=== PATIENT | female | born 1970 | race Caucasian/White ===

== ENCOUNTER 2018-02-20 07:49 | Inpatient (IN) | payer OTHER ==
[~2018-02-20 07:49] MED LIST: SOD CHLORIDE 0.9% 1,000 ML IV
[2018-02-20] MEDS ORDERED: LIDOCAINE 1% (MPF) 30 ML INJ (09:07)
[2018-02-20] MEDS ORDERED: BUPIVACAINE 0.25%/EPI (SDV) 30 ML INJ (09:07)
[2018-02-20] MEDS ORDERED: CEFAZOLIN 1 GM INJ ×2 (09:10→09:45)
[2018-02-20] MEDS ORDERED: PROPOFOL 20 ML (09:10)
[2018-02-20] MEDS ORDERED: ROCURONIUM 50 MG INJ (09:10)
[2018-02-20] MEDS ORDERED: LIDOCAINE 2% (SDV) 5 ML INJ (09:10)
[2018-02-20] MEDS ORDERED: MIDAZOLAM 1 MG/ML 2 ML INJ (09:10)
[2018-02-20] MEDS ORDERED: FENTAnyl 50 MCG/ML VIAL (09:10)
[2018-02-20] MEDS ORDERED: ROPIVACAINE 0.5 % 30 ML VIAL (09:10)
[2018-02-20] MEDS ORDERED: SUCCINYLCHOLINE CHLORIDE 100 MG/5 ML SYG IV (09:10)
[2018-02-20] MEDS ORDERED: ONDANSETRON 4 MG INJ (09:44)
[2018-02-20] MEDS ORDERED: DEXAMETHASONE 4 MG/ML 1 ML INJ (09:44)
[2018-02-20] MEDS ORDERED: FAMOTIDINE 20 MG INJ (09:44)
[2018-02-20] MEDS ORDERED: HYDROmorphONE 2 MG/ML SYG (10:30)
[2018-02-20] MEDS ORDERED: ACETAMINOPHEN 1000MG/100ML IV 100 ML (11:44)
[2018-02-20] MEDS ORDERED: NEOSTIGMINE 3 MG/3 ML SYRINGE (11:48)
[2018-02-20] MEDS ORDERED: GLYCOPYRROLATE 0.4 MG INJ (11:48)
[2018-02-20] MEDS: SOD CHLORIDE 0.9% 1,000 ML IV (12:07)
[2018-02-20] MEDS ORDERED: PROCHLORPERAZINE 10 MG INJ IV (12:30)
[2018-02-20] MEDS ORDERED: FENTAnyl 50 MCG/ML VIAL IV ×3 (12:30)
[2018-02-20] MEDS ORDERED: IBUPROFEN 600 MG TAB PO (12:30)
[2018-02-20] MEDS ORDERED: ONDANSETRON 4 MG INJ IV (12:30)
[2018-02-20] MEDS ORDERED: HYDROCODONE/APAP (5/325) TAB PO (12:30)
[2018-02-20] MEDS ORDERED: DIPHENHYDRAMINE 50 MG INJ IV (12:30)
[2018-02-20] MEDS ORDERED: HYDROmorphONE 1 MG/5 ML IV SYRINGE IV ×2 (12:30)
[2018-02-20] MEDS: HYDROmorphONE 1 MG/5 ML IV SYRINGE IV (12:40)
[2018-02-20] MEDS: ONDANSETRON 4 MG INJ IV ×2 (12:45→20:57)
[2018-02-20] MEDS: MEPERIDINE 25 MG INJ IV (12:45)
[2018-02-20] MEDS ORDERED: GLUCAGON 1 MG INJ IM (13:00)
[2018-02-20] MEDS ORDERED: GLUCOSE GEL 15 GRAM TUBE BUCCAL (13:00)
[2018-02-20] MEDS ORDERED: GLUCOSE GEL 15 GRAM TUBE PO ×2 (13:00)
[2018-02-20] MEDS ORDERED: DEXTROSE 50% 50 ML SYRINGE IV ×2 (13:00)
[2018-02-20 14:44] LABS: ADD MAN DIFF? NO
[2018-02-20 14:45] LABS: WHITE BLOOD COUNT 10.4 10^3/ul (4.8-10.8)
[2018-02-20 14:45] LABS: BASOPHILS % 0.1 % (0.0-2.0); HEMATOCRIT 37.5 % (37.0-47.0); HEMOGLOBIN 12.8 g/dl (12.0-16.0); LYMPHOCYTES # 0.9 10^3/ul (0.8-2.9); LYMPHOCYTES % 8.4 % (15.0-51.0); MEAN CORPUSCULAR HEMOGLOBIN 29.4 pg (29.0-33.0); MEAN CORPUSCULAR HGB CONC 34.1 g/dl (32.0-37.0); MEAN CORPUSCULAR VOLUME 86.2 fl (82.0-101.0); MEAN PLATELET VOLUME 9.7 fl (7.4-10.4); MONOCYTE # 0.4 10^3/ul (0.3-0.9); MONOCYTES % 3.6 % (0.0-11.0); NEUTROPHIL # 9.1 10^3/ul (1.6-7.5); NEUTROPHILS % 87.3 % (39.0-77.0); PLATELET COUNT 216 10^3/UL (140-415); RED BLOOD COUNT 4.35 10^6/ul (4.20-5.40); RED CELL DISTRIBUTION WIDTH 13.7 % (11.5-14.5)
[2018-02-20] MEDS: morphine 2 MG INJ IV ×2 (15:47→20:57)
[2018-02-20] MEDS: INSULIN ASPART [NOVOLOG] 3 ML PEN SC (17:56)
[2018-02-20] MEDS ORDERED: ACETAMINOPHEN 1000MG/100ML IV 100 ML IVPB (20:30)
[2018-02-20 20:34] LABS: HEMATOCRIT 35.6 % (37.0-47.0); HEMOGLOBIN 12.4 g/dl (12.0-16.0)
[2018-02-21] MEDS: morphine 2 MG INJ IV ×6 (00:47→20:16)
[2018-02-21] MEDS: SOD CHLORIDE 0.9% 1,000 ML IV ×2 (03:52→12:45)
[2018-02-21] MEDS: ENOXAPARIN 40 MG/0.4 ML SYG SC (06:12)
[2018-02-21 06:48] LABS: ADD MAN DIFF? NO
[2018-02-21 07:01] LABS: WHITE BLOOD COUNT 6.2 10^3/ul (4.8-10.8)
[2018-02-21 07:01] LABS: BASOPHILS % 0.5 % (0.0-2.0); EOSINOPHILS % 0.5 % (0.0-7.0); HEMATOCRIT 33.3 % (37.0-47.0); HEMOGLOBIN 11.4 g/dl (12.0-16.0); LYMPHOCYTES # 1.5 10^3/ul (0.8-2.9); LYMPHOCYTES % 24.2 % (15.0-51.0); MEAN CORPUSCULAR HEMOGLOBIN 29.2 pg (29.0-33.0); MEAN CORPUSCULAR HGB CONC 34.2 g/dl (32.0-37.0); MEAN CORPUSCULAR VOLUME 85.4 fl (82.0-101.0); MONOCYTE # 0.5 10^3/ul (0.3-0.9); MONOCYTES % 8.1 % (0.0-11.0); NEUTROPHIL # 4.1 10^3/ul (1.6-7.5); NEUTROPHILS % 66.2 % (39.0-77.0); PLATELET COUNT 189 10^3/UL (140-415); RED CELL DISTRIBUTION WIDTH 14.2 % (11.5-14.5)
[2018-02-21] MEDS: KETOROLAC 30 MG INJ IV ×2 (14:21→18:19)
[2018-02-22] MEDS: SOD CHLORIDE 0.9% 1,000 ML IV ×3 (00:13→19:56)
[2018-02-22] MEDS: KETOROLAC 30 MG INJ IV ×4 (00:16→18:26)
[2018-02-22] MEDS: ENOXAPARIN 40 MG/0.4 ML SYG SC (06:05)
[2018-02-22 08:05] LABS: ANION GAP 9 (8-16); BLOOD UREA NITROGEN 8 mg/dl (7-20); CARBON DIOXIDE 25 mmol/L (21-31); CHLORIDE 110 mmol/L (97-110); CREATININE 0.52 mg/dl (0.44-1.00); GLUCOSE 144 mg/dl (70-220); POTASSIUM 3.5 mmol/L (3.5-5.1); SODIUM 140 mmol/L (135-144)
[2018-02-22] MEDS: CEFAZOLIN 2 GM/50 ML (PMX) 50 ML IVPB (09:26)
[2018-02-22] MEDS: morphine 2 MG INJ IV (09:26)
[2018-02-22] MEDS: POLYETHYLENE GLYCOL 17 GM PACKET PO (12:32)
[2018-02-22] MEDS ORDERED: morphine LIQ (10 MG/5 ML) CUP PO (19:00)
[2018-02-22] MEDS: HYDROCODONE/APAP (5/325) TAB PO (23:00)
[2018-02-23] MEDS: KETOROLAC 30 MG INJ IV ×5 (00:33→23:46)
[2018-02-23] MEDS: SOD CHLORIDE 0.9% 1,000 ML IV ×2 (06:11→16:17)
[2018-02-23] MEDS: ENOXAPARIN 40 MG/0.4 ML SYG SC (06:14)
[2018-02-23] MEDS: POLYETHYLENE GLYCOL 17 GM PACKET PO (09:17)
[2018-02-23] MEDS: HYDROCODONE/APAP (5/325) TAB PO ×2 (21:22→22:12)
[2018-02-24] MEDS: SOD CHLORIDE 0.9% 1,000 ML IV (02:00)
[2018-02-24] MEDS: KETOROLAC 30 MG INJ IV ×2 (05:46→14:07)
[2018-02-24] MEDS: ENOXAPARIN 40 MG/0.4 ML SYG SC (05:56)
[2018-02-24] MEDS: POLYETHYLENE GLYCOL 17 GM PACKET PO (08:53)
== END 2018-02-24 18:30 | disposition home or self-care (01) | DRG 355 ==
LOC: SDS 07:49 → REC 12:07 → 2NE 14:05
PROVIDERS: Surgery Surgical Critical Care
PROC: 0WUF4JZ Supplement Abdominal Wall with Synthetic Substitute, Percutaneous Endoscopic Approach (ICD-10-PCS; principal; 2018-02-20 09:25)
DX: K43.6 Other and unspecified ventral hernia with obstruction, without gangrene (principal); E78.5 Hyperlipidemia, unspecified; Z90.49 Acquired absence of other specified parts of digestive tract
CPT/HCPCS: 80048; 82962; 85014; 85018; 85025; 97110; 97116; 97162; 97530